=== PATIENT | female | born 1955 | race Caucasian/White ===

== ENCOUNTER 2019-03-17 09:38 | Inpatient (IN) | payer OTHER ==
[2019-03-17] MEDS: SOD CHLORIDE 0.9% 1,000 ML IV (10:40)
[2019-03-17] MEDS ORDERED: POLYMYXIN/BACITRACIN 1L IRRIG (11:23)
[2019-03-17] MEDS ORDERED: BUPIVACAINE 0.25% (MPF) 30 ML INJ (11:23)
[2019-03-17] MEDS: BUPIVACAINE 0.5% (SDV) 30 ML INJ INJ (11:45)
[2019-03-17] MEDS: POLYMYXIN/BACITRACIN 1L IRRIG IRR (11:45)
[2019-03-17] MEDS ORDERED: MIDAZOLAM 1 MG/ML 2 ML INJ (11:52)
[2019-03-17] MEDS: CEFAZOLIN 2 GM/50 ML (PMX) 50 ML IVPB ×2 (12:00→20:22)
[2019-03-17] MEDS ORDERED: GLYCOPYRROLATE 0.4 MG INJ (13:51)
[2019-03-17] MEDS ORDERED: LIDOCAINE 2% (SDV) 5 ML INJ (13:51)
[2019-03-17] MEDS ORDERED: NEOSTIGMINE 3 MG/3 ML SYRINGE (13:51)
[2019-03-17] MEDS ORDERED: CEFAZOLIN 1 GM INJ (13:51)
[2019-03-17] MEDS ORDERED: ROCURONIUM 50 MG INJ (13:51)
[2019-03-17] MEDS ORDERED: ETOMIDATE 20 MG INJ (13:51)
[2019-03-17] MEDS ORDERED: ROPIVACAINE 0.5 % 30 ML VIAL (13:52)
[2019-03-17] MEDS ORDERED: ONDANSETRON 4 MG INJ (13:57)
[2019-03-17] MEDS ORDERED: LABETALOL HCL 20MG INJ IV (14:30)
[2019-03-17] MEDS ORDERED: OXYCODONE/ACETAMINOPHEN (5/325) TAB PO (14:30)
[2019-03-17] MEDS ORDERED: DIPHENHYDRAMINE 50 MG INJ IV (14:30)
[2019-03-17] MEDS ORDERED: FENTAnyl 50 MCG/ML VIAL IV (14:30)
[2019-03-17] MEDS ORDERED: ONDANSETRON 4 MG INJ IV (14:30)
[2019-03-17] MEDS ORDERED: morphine 2 MG INJ IV (14:30)
[2019-03-17] MEDS ORDERED: hydrALAzine 20 MG INJ IV (14:30)
[2019-03-17] MEDS ORDERED: HYDROmorphONE 1 MG/5 ML IV SYRINGE IV (14:30)
[2019-03-17] MEDS ORDERED: CEFAZOLIN 2 GM/50 ML (PMX) 50 ML IVPB (15:00)
[2019-03-17] MEDS: MEPERIDINE 25 MG INJ IV (15:01)
[2019-03-17] MEDS: HYDROmorphONE 1 MG/5 ML IV SYRINGE IV (15:02)
[2019-03-17] MEDS: METOCLOPRAMIDE 10 MG INJ IV (15:02)
[2019-03-17] MEDS: DEXTROSE 5%-0.45% NACL 1,000 ML IV (16:14)
[2019-03-17] MEDS: FAMOTIDINE 20 MG TAB PO (20:23)
[2019-03-17] MEDS: DOCUSATE SODIUM 100 MG CAP PO (20:24)
[2019-03-18] MEDS: DEXTROSE 5%-0.45% NACL 1,000 ML IV ×2 (00:30→01:07)
[2019-03-18] MEDS: CEFAZOLIN 2 GM/50 ML (PMX) 50 ML IVPB ×2 (03:47→11:45)
[2019-03-18] MEDS: ACETAMINOPHEN 325 MG TAB PO (03:49)
[2019-03-18 07:26] LABS: ADD MAN DIFF? NO
[2019-03-18 07:32] LABS: BASOPHILS % 0.5 % (0.0-2.0); EOSINOPHILS # 0.1 10^3/ul (0.0-0.5); EOSINOPHILS % 1.2 % (0.0-7.0); HEMATOCRIT 38.1 % (37.0-47.0); HEMOGLOBIN 11.9 g/dl (12.0-16.0); LYMPHOCYTES # 2.2 10^3/ul (0.8-2.9); LYMPHOCYTES % 28.6 % (15.0-51.0); MEAN CORPUSCULAR HEMOGLOBIN 28.3 pg (29.0-33.0); MEAN CORPUSCULAR HGB CONC 31.2 g/dl (32.0-37.0); MEAN CORPUSCULAR VOLUME 90.5 fl (82.0-101.0); MEAN PLATELET VOLUME 9.3 fl (7.4-10.4); MONOCYTE # 0.8 10^3/ul (0.3-0.9); MONOCYTES % 9.9 % (0.0-11.0); NEUTROPHIL # 4.5 10^3/ul (1.6-7.5); NEUTROPHILS % 59.5 % (39.0-77.0); PLATELET COUNT 239 10^3/UL (140-415); RED BLOOD COUNT 4.21 10^6/ul (4.20-5.40); RED CELL DISTRIBUTION WIDTH 13.6 % (11.5-14.5)
[2019-03-18 07:32] LABS: WHITE BLOOD COUNT 7.6 10^3/ul (4.8-10.8)
[2019-03-18 07:54] LABS: ALANINE AMINOTRANSFERASE 16 IU/L (13-69); ALBUMIN 3.2 g/dl (3.3-4.9); ALKALINE PHOSPHATASE 72 IU/L (42-121); ANION GAP 4 (5-13); ASPARTATE AMINO TRANSFERASE 25 IU/L (15-46); BILIRUBIN,INDIRECT 0.8 mg/dl (0-1.1); BILIRUBIN,TOTAL 0.8 mg/dl (0.2-1.3); BLOOD UREA NITROGEN 6 mg/dl (7-20); CALCIUM 8.4 mg/dl (8.4-10.2); CARBON DIOXIDE 30 mmol/L (21-31); CHLORIDE 104 mmol/L (97-110); CREATININE 0.59 mg/dl (0.44-1.00); Estimated GFR > 60 mL/min (>60); GLUCOSE 110 mg/dl (70-220); POTASSIUM 3.2 mmol/L (3.5-5.1); SODIUM 138 mmol/L (135-144); TOTAL PROTEIN 6.4 g/dl (6.1-8.1)
[2019-03-18] MEDS: DOCUSATE SODIUM 100 MG CAP PO ×3 (09:24→20:07)
[2019-03-18] MEDS: POTASSIUM CHLORIDE (SR) 20 MEQ TAB PO ×2 (10:21→15:39)
[2019-03-18] MEDS: ONDANSETRON 4 MG INJ IV (13:31)
[2019-03-18] MEDS: FAMOTIDINE 20 MG TAB PO (20:07)
[2019-03-18] MEDS: OXYCODONE/ACETAMINOPHEN (5/325) TAB PO (20:07)
[2019-03-19 05:24] LABS: ADD MAN DIFF? NO
[2019-03-19 05:38] LABS: WHITE BLOOD COUNT 7.7 10^3/ul (4.8-10.8)
[2019-03-19 05:38] LABS: BASOPHIL # 0.1 10^3/ul (0.0-0.1); BASOPHILS % 0.7 % (0.0-2.0); EOSINOPHILS # 0.1 10^3/ul (0.0-0.5); EOSINOPHILS % 1.8 % (0.0-7.0); HEMOGLOBIN 11.9 g/dl (12.0-16.0); LYMPHOCYTES # 2.2 10^3/ul (0.8-2.9); MEAN CORPUSCULAR HEMOGLOBIN 28.2 pg (29.0-33.0); MEAN CORPUSCULAR HGB CONC 31.3 g/dl (32.0-37.0); MEAN PLATELET VOLUME 9.4 fl (7.4-10.4); MONOCYTE # 0.7 10^3/ul (0.3-0.9); MONOCYTES % 9.6 % (0.0-11.0); NEUTROPHIL # 4.6 10^3/ul (1.6-7.5); NEUTROPHILS % 59.5 % (39.0-77.0); PLATELET COUNT 228 10^3/UL (140-415); RED BLOOD COUNT 4.22 10^6/ul (4.20-5.40); RED CELL DISTRIBUTION WIDTH 13.6 % (11.5-14.5)
[2019-03-19 06:41] LABS: ANION GAP 6 (5-13); BLOOD UREA NITROGEN 7 mg/dl (7-20); CALCIUM 8.5 mg/dl (8.4-10.2); CARBON DIOXIDE 30 mmol/L (21-31); CHLORIDE 103 mmol/L (97-110); CREATININE 0.66 mg/dl (0.44-1.00); Estimated GFR > 60 mL/min (>60); GLUCOSE 94 mg/dl (70-220); POTASSIUM 3.4 mmol/L (3.5-5.1); SODIUM 139 mmol/L (135-144)
[2019-03-19] MEDS: DOCUSATE SODIUM 100 MG CAP PO ×3 (08:03→20:23)
[2019-03-19] MEDS: OXYCODONE/ACETAMINOPHEN (5/325) TAB PO ×2 (08:04→13:59)
[2019-03-19] MEDS: POTASSIUM CHLORIDE (SR) 20 MEQ TAB PO (13:52)
[2019-03-19] MEDS: ONDANSETRON 4 MG INJ IV (15:34)
[2019-03-19] MEDS: FAMOTIDINE 20 MG TAB PO (20:23)
[2019-03-20] MEDS: DOCUSATE SODIUM 100 MG CAP PO ×2 (09:15→15:06)
[2019-03-20] MEDS: MAGNESIUM HYDROXIDE 30ML CUP PO (10:59)
[2019-03-20] MEDS: IBUPROFEN 600 MG TAB PO (11:35)
== END 2019-03-20 15:25 | disposition home or self-care (01) | DRG 355 ==
LOC: SDS 09:38 → 2NE 14:12
PROC: 0WUF4JZ Supplement Abdominal Wall with Synthetic Substitute, Percutaneous Endoscopic Approach (ICD-10-PCS; principal; 2019-03-17 11:34)
DX: K46.9 Unspecified abdominal hernia without obstruction or gangrene (principal); Z68.30 Body mass index [BMI] 30.0-30.9, adult; E66.9 Obesity, unspecified; G89.18 Other acute postprocedural pain
CPT/HCPCS: 80048; 80053; 85025; 97116; 97162; 97530